=== PATIENT | female | born 2000 | race Caucasian/White ===

== ENCOUNTER 2023-09-13 10:32 | Outpatient (CLI) | payer OTHER, SELFPAY ==
[2023-09-13 15:26] LABS: Chlamydia DNA Amplified* NOT DETECTED (No Detected); GC DNA Amplified* NOT DETECTED (No Detected)
== END 2023-09-13 10:33 | disposition home or self-care (01) ==
LOC: FRMREF 10:33
PROVIDERS: PCP Family Medicine; Visit Provider Registered Nurse
DX: Z11.3 Encounter for screening for infections with a predominantly sexual mode of transmission (principal)
CPT/HCPCS: 87491; 87591

== ENCOUNTER 2023-12-21 10:22 | Outpatient (CLI) | payer OTHER, SELFPAY | END 2023-12-21 10:23 | disposition home or self-care (01) | PROVIDERS: PCP Family Medicine; Visit Provider Registered Nurse | DX: R42 Dizziness and giddiness (principal); R51.9 Headache, unspecified; N94.6 Dysmenorrhea, unspecified | CPT/HCPCS: 80053; 82728; 84443 ==